=== PATIENT | female | born 1930 | race Caucasian/White ===

== ENCOUNTER 2017-05-18 09:13 | Emergency (ER) | payer MEDICARE, BC ==
[2017-05-18 09:31] VITALS: RESP 18
[2017-05-18] MEDS ORDERED: OXYMETAZOLINE 0.05% NASL SPRAY 1 SPRAY BOTTLE NASAL STA (09:50)
--- NOTE | 2017-05-18 10:08 | ED ---
General Adult HPI - General Chief complaint: ENT Stated complaint: nosebleed Time Seen by Provider: 05/18/17 09:40 Source: patient, RN notes reviewed Mode of arrival: ambulatory Limitations: no limitations - History of Present Illness Initial comments: 86-year-old female presents to the emergency Department chief complaint epistaxis. Patient states she had bleeding from the left near a few days ago. Patient states the laceration bleeding from both nares. Patient states that she did eventually get it. She did pack it at home but she was concerned due to the bleeding so she thought that she should be seen. There is no nausea or vomiting. She denies any use of blood thinners. She states she is to have a history of epistaxis. Cough cold like symptoms. She states that she just could not get it to stop bleeding so she thought that she should be seen. Patient denies any recent fever, chills, shortness of breath, chest pain, back pain, abdominal pain, nausea vomiting, numbness or tingling, dysuria or hematuria, constipation or diarrhea, headaches or visual changes, or any other current symptoms. - Related Data Allergies Allergy/AdvReac Type Severity Reaction Status Date / Time Sulfa (Sulfonamide Allergy Rash/Hives Verified 05/18/17 09:31 Antibiotics) Review of Systems ROS Statement: Those systems with pertinent positive or pertinent negative responses have been documented in the HPI. ROS Other: All systems not noted in ROS Statement are negative. Past Medical History Past Medical History: Thyroid Disorder Additional Past Medical History / Comment(s): lymphoma, skin cancer History of Any Multi-Drug Resistant Organisms: MRSA Date of last positivie culture/infection: leg MDRO Source:: 2013 Additional Past Surgical History / Comment(s): skin ca removal Past Psychological History: No Psychological Hx Reported Smoking Status: Never smoker Past Alcohol Use History: Rare Past Drug Use History: None Reported General Exam Limitations: no limitations General appearance: alert, in no apparent distress Head exam: Present: atraumatic, normocephalic, normal inspection Eye exam: Present: normal appearance, PERRL, EOMI. Absent: scleral icterus, conjunctival injection, periorbital swelling ENT exam: Present: normal exam, mucous membranes moist, other (no active bleeding at this time) Neck exam: Present: normal inspection. Absent: tenderness, meningismus, lymphadenopathy Respiratory exam: Present: normal lung sounds bilaterally. Absent: respiratory distress, wheezes, rales, rhonchi, stridor Cardiovascular Exam: Present: regular rate, normal rhythm, normal heart sounds. Absent: systolic murmur, diastolic murmur, rubs, gallop, clicks GI/Abdominal exam: Present: soft, normal bowel sounds. Absent: distended, tenderness, guarding, rebound, rigid Extremities exam: Present: normal inspection, full ROM, normal capillary refill. Absent: tenderness, pedal edema, joint swelling, calf tenderness Back exam: Present: normal inspection Neurological exam: Present: alert, oriented X3 Psychiatric exam: Present: normal affect, normal mood Skin exam: Present: warm, dry, intact, normal color. Absent: rash Course Vital Signs 05/18/17 09:24 Temperature 97.9 F Pulse Rate 72 Respiratory 18 Rate Blood Pressure 168/77 O2 Sat by Pulse 99 Oximetry Medical Decision Making - Medical Decision Making 86 yo female presents to the ER with cc of epistaxsis. At this time bleeding has subsided. This time we discussed [facility]p. Discussed outpatient family's questions. They stated they understood this plan. All questions have been answered. They will be discharged Disposition Clinical Impression: Epistaxis Disposition: HOME SELF-CARE Condition: Stable Instructions: Nosebleed (ED) Additional Instructions: Please use medication as discussed. Please follow up with family doctor if symptoms have not improved over the next two days. Please return to the emergency room if your symptoms increase or worsen or for any other concerns. Referrals: Chepe Elise MD [Primary Care Provider] - 1-2 days Cliff Sahni MD [STAFF PHYSICIAN] - 1-2 days Time of Disposition: 11:07
[2017-05-18 12:12] VITALS: BP 135/67; PULSE 60; TEMP 98.1
== END 2017-05-18 12:11 | disposition home or self-care (01) ==
LOC: EC 09:13
DX: R04.0 Epistaxis (principal); Z85.72 Personal history of non-Hodgkin lymphomas; Z85.828 Personal history of other malignant neoplasm of skin; Z86.14 Personal history of Methicillin resistant Staphylococcus aureus infection; Z88.2 Allergy status to sulfonamides
CPT/HCPCS: 99283

== ENCOUNTER → 2018-03-27 | Outpatient (CLI) | payer MEDICARE, BC ==
--- NOTE | 2018-03-27 14:28 | CT ---
EXAMINATION TYPE: CT hip LT wo con DATE OF EXAM: 03/27/2018 COMPARISON: None HISTORY: Lt hip pain CT DLP: 306 mGycm Automated exposure control for dose reduction was used. FINDINGS: There is severe narrowing of the left hip joint. There is sclerosis involving the acetabulum and femo ral head. There is a slight cortical deformity involving the femoral head which likely is post arthri tic. Early avascular necrosis in the differential diagnosis. Anterior to the hip joint within the iliopsoas muscle is a rounded area of calcification. This appear s separate from the vasculature. Muscle is somewhat prominent relative the remaining musculature. IMPRESSION: 1. NO ACUTE FRACTURE. SEVERE OSTEOARTHRITIS NOTED. 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 CONSIDER MRI FOLLOW-UP. 2. THERE IS ABNORMAL SOFT TISSUE DENSITY IN THE ILIOPSOAS MUSCLE ANTERIOR TO THE FEMORAL HEAD WITH IN TERNAL CALCIFICATION. THIS IS INCOMPLETELY IMAGED BY NONCONTRAST CT COULD BE CORRELATED WITH EITHER U LTRASOUND OR MRI.
== END | disposition home or self-care (01) ==
LOC: RADCTMAIN 13:34
PROVIDERS: ATTEND Internal Medicine Geriatric Medicine
DX: M16.12 Unilateral primary osteoarthritis, left hip (principal); M62.89 Other specified disorders of muscle